=== PATIENT | female | born 1970 | race Caucasian/White ===

== ENCOUNTER 2016-12-05 05:04 | Day surgery (SDC) | payer OTHER ==
[~2016-12-05] VITALS: Ht 165.1 cm; Wt 74.8 kg
--- NOTE | ~2016-12-05 | O ---
[facility] [place] [address] OPERATIVE REPORT Name: MARYBEL MCDONNELL Room #: 150-5 [facility] M.R.#: [id number] Admission: 12/05/16 Attend Phys: Nnamdi Cruz MD Discharge: Date of : 72 Report #: [id number] THIS REPORT FOR: //name// CC: [facility] physician/PCP Ellis Cruz DATE OF SERVICE: 12/05/2016 PREOPERATIVE DIAGNOSIS: Left nasolacrimal duct obstruction. POSTOPERATIVE DIAGNOSIS: Left nasolacrimal duct obstruction. PROCEDURE: Left endoscopic balloon dacryocystoplasty with silicone intubation. SURGEON: Nnamdi Cruz M.D. CARPET INSTALLATION SPECIALIST: None. ANESTHESIA: General. COMPLICATIONS: None. 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 She presents today for a left endoscopic balloon dilation procedure of her red devil lacrimal outflow tract with silicone intubation. Informed consent was obtained to include, but not limited to the potential risk for loss of vision, bleeding, infection, failure to improve the problem, the potential need for further surgery or treatment. DESCRIPTION OF PROCEDURE: The patient was taken to the operating room where general anesthesia was administered. The left medial canthal area and the left lateral wall of the nose were then generously infiltrated with Xylocaine with epinephrine mixed with Marcaine and Wydase. The patient was then subsequently prepped and draped in usual sterile fashion. The left side of the nose was packed with Afrin-soaked cottonoids. The superior and inferior puncta were then dilated with a double-ended punctum dilator. A size #1 King probe was then passed through the superior canalicular system down the stenosed nasolacrimal duct into the inferior meatus. The cottonoids were then removed from the nose and the nasal vault inspected. Utilizing the videoendoscope, the inferior turbinate was deviated medially. A large nasal septal perforation was visualized anteriorly. The King probe could be seen in the proper location in the nose. That King probe was then removed and a size [facility] [address] [place] [address] OPERATIVE REPORT Name: MARYBEL MCDONNELL Room #: 150-5 [facility] M.R.#: [id number] Admission: 12/05/16 Attend Phys: Nnamdi Cruz MD Discharge: Date of : 72 Report #: [id number] King probe was then passed through the superior canalicular system into the inferior meatus. It was also visualized in the nose with the videoendoscope. A 3 x 15 mm LacriCatheter was then lubricated with erythromycin ophthalmic ointment passed through the superior canalicular system into the inferior meatus and visualized to be in the proper location videoendoscopically. The balloon was then inflated to 9 atmospheres for 90 seconds at each of 3 different locations in the tract. It was then inflated to 9 atmospheres for 60 seconds ensuring that the entire tract was well dilated. The balloon was then vigorously aspirated as it was withdrawn. The tract irrigated well through the superior canaliculus with saline. Silicone tubes were then passed through the superior canalicular system and retrieved in the nose with a Allen hook and the videoendoscope. The inferior system; however, was obstructed at the common canaliculus. Despite several attempts, it could not be passed. A decision was made to place a monocanalicular stent with a medium sized collared plug was then placed on the eye and the patient subsequently transported to the recovery area having tolerated the procedure well with no anesthetic or operative complications being made. <ELECTRONICALLY SIGNED> By: Nnamdi Cruz MD 12/09/16 0611 [id number] Nnamdi Cruz MD /nt
[~2016-12-05 05:04] MED LIST: CELEXA20 MG PO; CENTRUM SILVER1 EAC4 PO; HAIR, SKIN & N1 EAC3 PO; SELENIUM100 MCG PO; TIROSINT125 MCG PO; TOPROL XL25 MG PO; VITAMIN D-32000 UNIT PO; WELLBUTRIN XL150 MG PO
[2016-12-05 12:00] VITALS: BP 136/79
== END 2016-12-05 15:20 | disposition home or self-care (01) ==
LOC: TBA 05:04 → OR 05:04
DX: H04.552 Acquired stenosis of left nasolacrimal duct (principal); F32.9 Major depressive disorder, single episode, unspecified; F41.9 Anxiety disorder, unspecified; I10 Essential (primary) hypertension; E03.9 Hypothyroidism, unspecified; Z90.710 Acquired absence of both cervix and uterus; Z98.890 Other specified postprocedural states; Z96.641 Presence of right artificial hip joint
CPT/HCPCS: 50010; 50101; 50386; 50398; 51777; 56528; 62110; 62900; 70005